=== PATIENT | female | born 1990 | race Caucasian/White ===

== ENCOUNTER 2017-02-09 19:45 | Emergency (ER) | payer OTHER ==
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
[2017-02-09 20:30] LABS: BASOPHILS % 0.5 (0.0-1.5); EOSINOPHILS % 1.4 % (0.0-6.8); MEAN CORPUSCULAR HEMOGLOBIN 29.8 pg (28.0-34.0); MEAN CORPUSCULAR VOLUME 88.6 fl (80.0-100.0); MONOCYTES % 3.6 % (0.0-11.0); NEUTROPHILS # 7.5 # k/uL (1.4-7.7); eGFR (African) > 60; eGFR (Non-African) > 60
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
[2017-02-09] MEDS ORDERED: ONDANSETRON HCL/PF 4 MG/ 2ML VIAL IVP ONE (20:57)
[2017-02-09] MEDS ORDERED: LORazepam 2 MG/ML VIAL IVP ONE (20:57)
[2017-02-09 22:07] VITALS: BP 117/72
== END 2017-02-09 22:00 | disposition home or self-care (01) ==
LOC: ED 19:45
DX: J70.5 Respiratory conditions due to smoke inhalation (principal)
CPT/HCPCS: 71020; 80053; 85025; J2060; J2405; 96374; 96375; 99283

== ENCOUNTER 2018-06-29 08:43 | Emergency (ER) | payer OTHER ==
[2018-06-29 08:58] VITALS: BP 129/72
--- NOTE | 2018-06-29 09:02 | ED Physician Documentation ---
Upper Respiratory Symptoms - HISTORIAN Historian: patient - HPI Stated Complaint: Cough, congestion Chief Complaint: Cough/ Upper Respiratory Additional Information: Patient is a 28-year-old female who presents to the ER with c/o cough, congestion, f/c, and wheezing. Patient states that symptoms started 3 days ago and she is not feeling any better. She has had a productive cough with greenish/brown sputum and wheezing at night. She denies any n/v/d. Onset: days ago (3 days ago) Duration: constant Context: denies: recent foreign travel, same sx Severity: mild Associated Symptoms: fever, chills, runny nose, sinus pain, sinus drainage, sore throat (from coughing), productive cough (greenish brown) Worsened by Deep Breath: Yes (coughing increases with deep breaths) - ROS CONST/EYES: denies: weakness CVS/RESP: denies: chest pain, shortness of breath LYMPH: denies: rash, swollen glands GI/: none NEURO/PSYCH: denies: dizziness MS/SKIN: muscle aches - PAST HX Lung Disease: none PE Risk Factors: none Surgeries/Procedures: other (ganglion cyst) Immunizations: UTD Allergies/Adverse Reactions: Allergies Allergy/AdvReac Type Severity Reaction Status Date / Time diphenhydramine HCl Allergy Intermediate Verified 06/29/18 08:53 [From Benadryl] Home Medications: Ambulatory Orders Medication Instructions Recorded Albuterol Sulfate [Albuterol 2 inh IH Q4-6 PRN #1 inh 06/29/18 Sulfate Hfa] Amoxicillin/Potassium Clav 1 each PO BID #20 tablet 06/29/18 [Augmentin 875-125 Tablet] Benzonatate [Tessalon] 200 mg PO TID PRN #15 capsule 06/29/18 Fluticasone Propionate [Flonase 1 spray NS BID #1 bottle 06/29/18 Nasal [place]] Guaifenesin [Mucinex] 600 mg PO Q12H #14 tab.er.12h 06/29/18 Levonorgestrel-Ethin Estradiol 1 tab PO DAILY 06/29/18 [Marlissa-28 Tablet] Methylprednisolone [Medrol] 4 mg PO DAILY #21 tab.ds.pk 06/29/18 Sertraline HCl [Zoloft] 50 mg PO DAILY 06/29/18 - SOCIAL HX Smoking History: non-smoker Alcohol Use: none Drug Use: none - FAMILY HX Family History: none - VITAL SIGNS Vital Signs: Vital Signs Temp Pulse Resp BP Pulse Ox 98.6 F 94 H 17 129/72 98 06/29/18 08:48 06/29/18 08:48 06/29/18 08:48 06/29/18 08:48 06/29/18 08:48 Upper Respiratory Symptoms - EXAM General Appearance: alert, mild distress EENT: eyes nml inspection, lids & conjunct. nml, PERRL, pain over sinuses, maxillary, TM dullness (R), TM dullness (L), mucosal edema, pharynx nml Neck: normal inspection, supple Respiratory: breath sounds nml, speaks full sentences Abdomen: nml bowel sounds CVS: heart sounds normal, equal pulses Skin: color nml, no rash, warm,dry Extremities: normal range of motion Neuro/Psych: oriented x3, neuro intact, mood/affect nml Discharge Clincal Impression: Upper respiratory infection with cough and congestion Prescriptions: Albuterol Sulfate [Albuterol Sulfate Hfa] 2 inh IH Q4-6 PRN #1 inh PRN Reason: Wheezing Amoxicillin/Potassium Clav [Augmentin 875-125 Tablet] 1 each PO BID #20 tablet Benzonatate [Tessalon] 200 mg PO TID PRN #15 capsule PRN Reason: Cough Fluticasone Propionate [Flonase Nasal [place]] 1 spray NS BID #1 bottle Guaifenesin [Mucinex] 600 mg PO Q12H #14 tab.er.12h Methylprednisolone [Medrol] 4 mg PO DAILY #21 tab.ds.pk Referrals: Lashonda Corea MD [Primary Care Provider] - 2 Days Additional Instructions: Take Augmentin 875 mg by mouth twice a day for 10 days Flonase nasal spray; 1 spray each nostril twice a day Medrol dose pack; take as directed on packet Mucinex; take 1 tab by mouth every 12 hours Albuterol inhaler; 1-2 puffs every 4-6 hours as needed for wheezing Tessalon Perles; take 2 cap 3 times a day as needed for cough Increase fluid intake; no caffeine Alternate Tylenol and Ibuprofen as needed for fever > 101/discomfort Use a cool mist humidifier Nasal washes (if tolerated) Follow up with PCP next week if no improvement Condition: Good Disposition: 01 HOME, SELF-CARE Decision to Admit: NO Decision Time: 09:02
== END 2018-06-29 09:03 | disposition home or self-care (01) ==
LOC: ED 08:43
DX: J06.9 Acute upper respiratory infection, unspecified (principal); R05 Cough; R09.81 Nasal congestion
CPT/HCPCS: 99282; 99283

== ENCOUNTER 2019-03-07 17:50 | Emergency (ER) | payer OTHER ==
[2019-03-07] MEDS ORDERED: ONDANSETRON HCL/PF 4 MG/ 2ML VIAL IVP ONE (18:06)
[2019-03-07] MEDS ORDERED: 0.9 % SODIUM CHLORIDE 1,000 ML IV ONE ×2 (18:06)
[2019-03-07] MEDS ORDERED: ONDANSETRON HCL/PF 4 MG/ 2ML VIAL ONE (18:06)
[2019-03-07 18:11] LABS: BASOPHILS % 0.6 % (0.0-1.5); NEUTROPHILS # 11.7 # k/uL (1.4-7.7)
[2019-03-07 18:20] LABS: eGFR (Non-African) > 60
--- NOTE | 2019-03-07 18:25 | ED Physician Documentation ---
Nausea/Vomiting/Diarrhea - HISTORIAN Historian: patient - HPI Stated Complaint: Abd pain, N/V/D Chief Complaint: Nausea,Vomiting,Diarrhea Additional Information: 29 year old female presents with with complaint of sudden onset of N/V/D and abd pain that woke her from sleep at 2300 last night. Pt states she has been vomiting all day with diarrhea all day today. Onset: hours Duration: sudden-onset Timing: sudden onset Context: denies: out of country travel, bad food Severity: mild - Associated Symptoms Vomiting: mild, bilious Diarrhea: mild, mucous Abdominal Pain: aching - ROS CONST: none CVS/RESP: denies: chest pain, shortness of breath GI/: none EYES/ENT: none NEURO/PSYCH: none - PAST HX Past History: none Surgeries/Procedures: other (ganglion cyst) Immunizations: UTD Allergies/Adverse Reactions: Allergies Allergy/AdvReac Type Severity Reaction Status Date / Time diphenhydramine HCl Allergy Intermediate Verified 03/07/19 18:20 [From Benadryl] Home Medications: Ambulatory Orders Medication Instructions Recorded NK 03/07/19 - SOCIAL HX Smoking History: non-smoker Alcohol Use: rarely Drug Use: none - FAMILY HX Family History: none - VITAL SIGNS Vital Signs: Vital Signs Temp Pulse Resp BP Pulse Ox 98.2 F 68 16 123/68 98 03/07/19 19:10 03/07/19 19:10 03/07/19 19:10 03/07/19 19:10 03/07/19 19:10 - REVIEWED ASSESSMENTS Nursing Assessment Reviewed: Yes Vitals Reviewed: Yes ED Results Lab/Radiology - Lab Results Lab Results: Lab Results 03/07/19 03/07/19 18:09 18:09 WBC 13.60 K/ul H K/ul (4.00-12.00) RBC 5.02 M/ul M/ul (3.90-5.20) Hgb 13.4 g/dL g/dL (11.5-16.0) Hct 39.7 % % (34.5-46.5) MCV 79.0 fl L fl (80.0-100.0) MCH 26.7 pg L pg (28.0-34.0) MCHC 33.7 g/dL g/dL (30.0-36.0) RDW 13.1 % % (11.3-14.3) Plt Count 338 K/mm3 K/mm3 (130-400) Neut % (Auto) 86.3 % H % (39.0-79.0) Lymph % (Auto) 5.5 % L % (16.0-50.0) [place] % (Auto) 6.5 % % (0.0-11.0) Eos % (Auto) 1.1 % % (0.0-6.8) Baso % (Auto) 0.6 % % (0.0-1.5) Neut # (Auto) 11.7 # k/uL H # k/uL (1.4-7.7) Lymph # (Auto) 0.8 # k/uL # k/uL (0.6-4.0) [place] # (Auto) 0.9 # k/uL # k/uL (0.0-0.9) Eos # (Auto) 0.2 # k/uL # k/uL (0.0-0.6) Baso # (Auto) 0.1 # k/uL # k/uL (0.0-0.5) Sodium 138 mmol/L mmol/L (137-145) Potassium 3.8 mmol/L mmol/L (3.5-5.1) Chloride 102 mmol/L mmol/L (98-107) Carbon Dioxide 22 mmol/L mmol/L (22-30) Anion Gap 17.8 BUN 15 mg/dL mg/dL (7-17) Creatinine 0.74 mg/dL mg/dL (0.52-1.04) Est GFR ( Amer) > 60 (60 - ) Est GFR (Non-Af Amer) > 60 (60 - ) Glucose 127 mg/dL H mg/dL (74-106) Calcium 9.0 mg/dL mg/dL (8.4-10.2) Total Bilirubin 0.8 mg/dL mg/dL (0.2-1.3) AST 55 U/L H U/L (15-46) ALT 22 U/L U/L (4-35) Alkaline Phosphatase 89 U/L U/L (38-126) Total Protein 7.9 g/dL g/dL (6.3-8.2) Albumin 4.8 g/dL g/dL (3.5-5.0) Lipase 49 U/L U/L (23-300) - Orders Orders: ED Orders Category Date Time Status Place IV Lock 1T Care 03/07/19 18:06 Active CBC/PLATELET/DIFF Stat Lab 03/07/19 18:09 Completed CMP Stat Lab 03/07/19 18:09 Completed LIPASE Stat Lab 03/07/19 18:09 Completed 0.9 % Sodium Chloride [Normal Saline] 1,000 ml Med 03/07/19 18:06 Discontinued IV .STK-MED 0.9 % Sodium Chloride [Normal Saline] 1,000 ml Med 03/07/19 18:06 Discontinued IV Q1H Ondansetron HCl/Pf [Zofran] Med 03/07/19 18:06 Discontinued 4 mg .ROUTE .STK-MED ONE Ondansetron HCl/Pf [Zofran] Med 03/07/19 18:06 Discontinued 4 mg IVP NOW ONE Promethazine HCl [Phenergan] Med 03/07/19 18:40 Discontinued 50 mg PO TAKE HOME ONE Nausea Physical Exam - EXAM General Appearance: no acute distress, alert EENT: eye inspection normal, ENT inspection normal, pharynx normal, ILEANA, TM's nml Neck: normal inspection Respiratory: breath sounds normal CVS: heart sounds normal Abdomen: non-tender Back: non-tender Skin: warm/dry, normal color Extremities: non-tender, normal range of motion Neuro/Psych: oriented X3, CN's nml as tested, motor nml, sensation nml, mood/affect nml, cognition normal Discharge Clincal Impression: Viral gastritis Referrals: Primary Doctor,No [Primary Care Provider] - 2 Days Additional Instructions: Take Phenergan 25 mg by mouth every 6 hours as needed for nausea and vomiting Start with clear liquids for 24 hours and advance diet as tolerated ([place]) Follow up with PCP next week for re-evaluation Condition: Good Disposition: 01 HOME, SELF-CARE Decision to Admit: NO Decision Time: 15:00
[2019-03-07] MEDS ORDERED: PROMETHAZINE HCL 25 MG TABLET PO ONE (18:40)
[2019-03-07 20:39] VITALS: BP 123/68
== END 2019-03-07 19:15 | disposition home or self-care (01) ==
LOC: ED 17:50
DX: A08.4 Viral intestinal infection, unspecified (principal)
CPT/HCPCS: 80053; 83690; 85025; 96361; 96374; 99282; 99284; J2405; J7030; S1016